=== PATIENT | female | born 2000 | race Caucasian/White ===

== ENCOUNTER 2020-11-16 16:07 | Inpatient (IN) | payer OTHER ==
[~2020-11-16] VITALS: Ht 157.5 cm; Wt 103.0 kg
[2020-11-16 17:06] LABS: HEMOGLOBIN 11.5 gm/dl (12.3-15.3); RED BLOOD COUNT 4.13 M/UL (4.00-5.10); WHITE BLOOD COUNT 10.7 K/UL (4.5-11.0)
[2020-11-17] MEDS ORDERED: HYDROCODONE-AC1 EACH PO (22:54)
[2020-11-17] MEDS ORDERED: DOCUSATE SODIU250 MG PO (22:54)
[2020-11-17] MEDS ORDERED: FEROSUL325 MG PO (22:54)
[2020-11-17] MEDS ORDERED: IBUPROFEN600 MG PO (22:54)
[2020-11-18 07:40] LABS: HEMOGLOBIN 8.8 gm/dl (12.3-15.3)
[2020-11-19] MEDS ORDERED: LABETALOL HCL200 MG PO (13:35)
== END 2020-11-20 12:00 | disposition home or self-care (01) | DRG 788 ==
LOC: GENOP 16:07 → OB 16:28
PROVIDERS: Obstetrics & Gynecology; ADMIT Obstetrics & Gynecology
PROC: 0U7C7ZZ Dilation of Cervix, Via Natural or Artificial Opening (ICD-10-PCS; 2020-11-16)
PROC: 4A1HXCZ Monitoring of Products of Conception, Cardiac Rate, External Approach (ICD-10-PCS; 2020-11-16)
PROC: 3E033VJ Introduction of Other Hormone into Peripheral Vein, Percutaneous Approach (ICD-10-PCS; 2020-11-17)
PROC: 10D00Z1 Extraction of Products of Conception, Low, Open Approach (ICD-10-PCS; principal; 2020-11-17 22:45)
DX: O13.4 Gestational [pregnancy-induced] hypertension without significant proteinuria, complicating childbirth (principal); O99.344 Other mental disorders complicating childbirth; F32.9 Major depressive disorder, single episode, unspecified; Z3A.38 38 weeks gestation of pregnancy; Z37.0 Single live birth; Z20.822 Contact with and (suspected) exposure to COVID-19; O76 Abnormality in fetal heart rate and rhythm complicating labor and delivery
CPT/HCPCS: 36415; 80307; 81001; 82800; 85014; 85018; 85025; 90471; 90715; C9113; J0690; J1170; J2001; J2250; J2274; J2405; J2590; J2704; J2795; J3010; J7120; U0003